=== PATIENT | female | born 1975 | race Caucasian/White ===

== ENCOUNTER 2017-09-07 16:09 | Emergency (ER) | payer MEDICAID ==
[~2017-09-07] VITALS: Ht 160 cm; Wt 53.1 kg
[2017-09-07 16:30] VITALS: Ht 160 cm; Wt 53.1 kg
[2017-09-07 21:56] VITALS: BP 116/77
== END 2017-09-07 21:56 | disposition home or self-care (01) ==
LOC: ED 16:09
DX: S61.012A Laceration without foreign body of left thumb without damage to nail, initial encounter (principal); W45.8XXA Other foreign body or object entering through skin, initial encounter; Y93.89 Activity, other specified; Y92.89 Other specified places as the place of occurrence of the external cause; Y99.8 Other external cause status
CPT/HCPCS: 90715